=== PATIENT | male | born 1955 | race Caucasian/White ===

== ENCOUNTER → 2023-09-27 10:43 | Outpatient (REF) | payer MEDICARE, BC, SELFPAY | LOC: PAVMRI 10:43 | PROVIDERS: ATTENDING PHYSICIAN Physician Assistant; FAMILY PHYSICIAN Internal Medicine | DX: M54.16 Radiculopathy, lumbar region (principal); M54.12 Radiculopathy, cervical region | CPT/HCPCS: 72141; 72148 ==

== ENCOUNTER → 2023-09-30 07:34 | Outpatient (REF) | payer MEDICARE, BC, SELFPAY | LOC: EMG 07:34 | PROVIDERS: ATTENDING PHYSICIAN Physician Assistant; FAMILY PHYSICIAN Internal Medicine | DX: R20.2 Paresthesia of skin (principal); R20.0 Anesthesia of skin; G56.03 Carpal tunnel syndrome, bilateral upper limbs | CPT/HCPCS: 95886; 95911 ==

== ENCOUNTER → 2023-11-20 07:21 | Outpatient (REF) | payer MEDICARE, BC, SELFPAY | LOC: MRI 3T 07:21 | PROVIDERS: ATTENDING PHYSICIAN Internal Medicine | DX: D35.2 Benign neoplasm of pituitary gland (principal) | CPT/HCPCS: 70553; A9575 ==

== ENCOUNTER → 2023-12-03 07:22 | Outpatient (REF) | payer MEDICARE, BC, SELFPAY | LOC: EMG 07:22 | PROVIDERS: ATTENDING PHYSICIAN Physician Assistant; FAMILY PHYSICIAN Internal Medicine | DX: M54.16 Radiculopathy, lumbar region (principal); M79.605 Pain in left leg; R20.2 Paresthesia of skin; M79.672 Pain in left foot; M54.17 Radiculopathy, lumbosacral region | CPT/HCPCS: 95886; 95908 ==

== ENCOUNTER → 2023-12-26 11:43 | Outpatient (REF) | payer MEDICARE, BC, SELFPAY | LOC: DHCBC/DCA 11:43 | PROVIDERS: ATTENDING PHYSICIAN Internal Medicine Interventional Cardiology; FAMILY PHYSICIAN Orthopaedic Surgery | DX: I25.2 Old myocardial infarction (principal); I25.10 Atherosclerotic heart disease of native coronary artery without angina pectoris | CPT/HCPCS: 78452; 93017; A9500; J2785 ==

== ENCOUNTER → 2023-12-27 09:04 | Outpatient (REF) | payer MEDICARE, BC, SELFPAY | LOC: RCS 09:04 | PROVIDERS: ATTENDING PHYSICIAN Internal Medicine Interventional Cardiology; FAMILY PHYSICIAN Internal Medicine | DX: I25.2 Old myocardial infarction (principal) | CPT/HCPCS: 93306 ==

== ENCOUNTER → 2024-01-13 10:49 | Outpatient (REF) | payer MEDICARE, BC, SELFPAY ==
[2024-01-13 11:27] LABS: Osmolality Urine 568 mOsm/kg (300-900)
[2024-01-13 12:05] LABS: Blood Urea Nitrogen 14 mg/dl (9-20); Calcium 9.2 mg/dl (8.4-10.2); Carbon Dioxide 27 mmol/L (22-30); Chloride 104 mmol/L (98-107); Glucose 111 mg/dl (70-99); Potassium 4.4 mmol/L (3.5-5.1); Sodium 143 mmol/L (135-145); eGFR > 60.00
== END ==
LOC: REG 10:49
PROVIDERS: ATTENDING PHYSICIAN Internal Medicine Endocrinology, Diabetes & Metabolism; FAMILY PHYSICIAN Internal Medicine
DX: R93.0 Abnormal findings on diagnostic imaging of skull and head, not elsewhere classified (principal)
CPT/HCPCS: 36415; 80048; 83935

== ENCOUNTER 2024-04-19 19:52 | Inpatient (IN) | payer MEDICARE, BC, SELFPAY ==
[2024-04-19 12:44] VITALS: BP 105/59
--- NOTE | 2024-04-19 14:34 | ED.GENMED ---
History of Present Illness
<Hilario Lai PA-C - Last Filed: 04/22/24 08:16>
General
Chief Complaint: Musculo-Skeletal Complaint
Time Seen by Provider: 04/19/24 13:06
History of Present Illness
History of Present Illness:
68-year-old male presents to the emergency department for evaluation of nontraumatic right elbow pain and swelling and warmth over the past 2 days. Denies any falls. No fevers or chills.
Past History
<Hilario Lai PA-C - Last Filed: 04/22/24 08:16>
Past History
ED Past Medical History: CAD, GERD, HTN, MA and Other (Arthritis, spinal stenosis, cellulitis)
ED Past Surgical History: Cardiac and Orthopedic
Social History
Tobacco: Non-smoker
Alcohol: None
Drug: None
Personal:
Living: with family
Family History
Family History: Other
Review of Systems
<Hilario Lai PA-C - Last Filed: 04/22/24 08:16>
Review of Systems
Allergies reviewed?: Yes
All Other Systems: ROS reviewed and negative except as documented in HPI and ROS
Phy Exam
<Hilario Lai PA-C - Last Filed: 04/22/24 08:16>
Physical Exam
Physical Exam:
GEN: Well appearing, NAD, WDWN
HEENT: Oral mucosa moist, no scleral icterus
Cardiac: Regular rate
Lung: No respiratory distress, no tachypnea
MSK: Diffuse swelling to the right elbow, palpable warmth, mild pain with passive range of motion but primarily with extension beyond 90 degrees, no pain with pronation or supination, no obvious external erythema
Skin: Good color, no pallor or jaundice, no rashes
Neuro: AO x3, moves all extremities freely
Psych: Calm, cooperative
Course
<Hilario Lai PA-C - Last Filed: 04/22/24 08:16>
Orders/Labs/Results
Orders:
Orders
04/19/24 12:48
Elbow, 3 View, Right [CR Elbow - Right Min 3 Views] Urgent
Comment:
Reason For Exam: pain
04/19/24 14:15
CBC/With ESR Urgent
CRP [C-Reactive Protein] Urgent
Comprehensive Metabolic Panel Urgent
04/19/24 Dinner
Cholesterol Lowering
At Your Request: Full Participation
Does patient need a safe tray?: No
Cholesterol Lowering: Sodium, 2 Gram
04/19/24 15:27
Body Fluid Cell Count Urgent
What is the Body Fluid: joint
Date Specimen was Collected: 04/19/24
Time Specimen was Collected: 15:26
Comment: with DIFF
Body Fluid Crystals Urgent
What is the Body Fluid: joint
Date Specimen was Collected: 04/19/24
Time Specimen was Collected: 15:26
Comment: R elbow
Fluid Culture with Gram Stain Urgent
ANJU Source: Joint Fluid
Specimen Description:
Date Specimen was Collected: 04/19/24
Time Specimen was Collected: 15:26
Comment: R elbow
04/19/24 19:17
Admit/Transfer Patient As Directed
Co-Sign Provider:
Level of Care: Inpatient admission
Assign to:: Medical/Surgical
Physician / Group: Estrada Mcdaniel
Diagnosis: septic arthritis, pseudogout
Reason for Hospitalization: septic arthritis, pseudogout
Expected length of stay greater than two midnights?: Yes
ELOS- Estimated Length of Stay in days: 3
I certify the patient meets the requirements for IP care: Yes
PRN Pain Medication Management As Directed
May give lesser potent ordered pain med per pt: Yes
preference::
Protocol:: Medication orders for pain may be administered in a
manner that supports deferring to patient preference
when the pt is:
- Requesting an ordered lesser potent pain medication.
Least to most potent pain medications are defined
as: acetaminophen < NSAID < tramadol < opioids
(morphine, oxycodone, hydromorphone).
- Requesting a lesser dose of the same medication IF
ORDERED.
- Requesting a less intrusive route of administration
if both routes are prescribed by the provider (PO <
IV).
04/19/24 19:19
Code Status As Directed
Resuscitation Status: Full Code
04/19/24 19:35
Vancomycin [Vancocin] 1,500 mg 0.9% Sodium Chloride 500 ml [Nss] 500 ml IV NOW
04/19/24 20:28
Acetaminophen [Tylenol] 650 mg PO Q4HPRN PRN
Ramipril [Altace] 10 mg PO BID
04/19/24 20:28
Activity As Directed
Activity Level: Ambulate
Vital Signs As Directed
Frequency: Per unit guidelines
Weight As Directed
Frequency: Once
DX Deep Vein Thrombosis Video Routine
04/19/24 22:00
Aspirin Low Dose EC [Aspir Low (Enteric Coated)] 81 mg PO HS
Atorvastatin [Lipitor] 20 mg PO HS
CefTRIAXone [Rocephin] 2,000 mg IV Q24H
Medical Marijuana 1 dose INH HS
Pregabalin [Lyrica] 400 mg PO HS
coQ10 (ubiquinol) 100 mg PO HS
04/20/24 07:13
Basic Metabolic Panel IN AM
Complete Blood Count/No Diff IN AM
04/20/24 08:00
Hydrochlorothiazide [Oretic] 25 mg PO DAILY
Metoprolol Xl [Toprol Xl] 25 mg PO DAILY
Multivitamin [Theragran] 1 tablet PO DAILY
Pantoprazole [Protonix] 40 mg PO DAILY
Pregabalin [Lyrica] 200 mg PO DAILY
omega-3 acid ethyl esters [Lovaza] 2 gm PO DAILY
04/20/24 18:00
Enoxaparin Sodium [Lovenox] 40 mg SC QPM
04/21/24 05:49
Basic Metabolic Panel IN AM
Complete Blood Count/No Diff IN AM
04/22/24 06:20
Basic Metabolic Panel IN AM
Complete Blood Count/No Diff IN AM
Abnormal Lab Results
04/19/24
14:15
WBC 15.2 H 10^3/uL
(4.8-10.8)
Absolute Neuts (auto) 12.0 H 10^3/uL
(1.4-6.5)
Absolute Monos (auto) 1.6 H 10^3/uL
(0.1-0.6)
Neutrophils % 78.5 H %
(42.2-75.2)
Lymphocytes % 8.5 L %
(20.5-51.1)
Monocytes % 10.8 H %
(1.7-9.3)
ESR 27 H mm/hour
(0-20)
Carbon Dioxide 32 H mmol/L
(22-30)
Glucose 128 H mg/dl
(70-99)
Total Bilirubin 2.1 H mg/dl
(0.2-1.3)
C-Reactive Protein 80.70 H mg/L
(0.0-10.00)
04/19/24 14:15
04/19/24 14:15
Vital Signs
Initial and Last Documented VS:
Initial Vital Signs
Temp Pulse Resp BP Pulse Ox
98.6 F 82 18 105/59 98
04/19/24 12:44 04/19/24 12:44 04/19/24 12:44 04/19/24 12:44 04/19/24 12:44
Last Documented Vital Signs
Temp Pulse Resp BP Pulse Ox
98.5 F 58 19 114/66 98
04/21/24 23:21 04/21/24 23:21 04/21/24 23:21 04/21/24 23:21 04/21/24 23:21
<Jennifer Tejeda NP - Last Filed: 04/19/24 23:48>
Orders/Labs/Results
Orders:
Orders
04/19/24 12:48
Elbow, 3 View, Right [CR Elbow - Right Min 3 Views] Urgent
Comment:
Reason For Exam: pain
04/19/24 14:15
CBC/With ESR Urgent
CRP [C-Reactive Protein] Urgent
Comprehensive Metabolic Panel Urgent
04/19/24 Dinner
Cholesterol Lowering
At Your Request: Full Participation
Does patient need a safe tray?: No
Cholesterol Lowering: Sodium, 2 Gram
04/19/24 15:27
Body Fluid Cell Count Urgent
What is the Body Fluid: joint
Date Specimen was Collected: 04/19/24
Time Specimen was Collected: 15:26
Comment: with DIFF
Body Fluid Crystals Urgent
What is the Body Fluid: joint
Date Specimen was Collected: 04/19/24
Time Specimen was Collected: 15:26
Comment: R elbow
Fluid Culture with Gram Stain Urgent
ANJU Source: Joint Fluid
Specimen Description:
Date Specimen was Collected: 04/19/24
Time Specimen was Collected: 15:26
Comment: R elbow
04/19/24 19:17
Admit/Transfer Patient As Directed
Co-Sign Provider:
Level of Care: Inpatient admission
Assign to:: Medical/Surgical
Physician / Group: Estrada Mcdaniel
Diagnosis: septic arthritis, pseudogout
Reason for Hospitalization: septic arthritis, pseudogout
Expected length of stay greater than two midnights?: Yes
ELOS- Estimated Length of Stay in days: 3
I certify the patient meets the requirements for IP care: Yes
PRN Pain Medication Management As Directed
May give lesser potent ordered pain med per pt: Yes
preference::
Protocol:: Medication orders for pain may be administered in a
manner that supports deferring to patient preference
when the pt is:
- Requesting an ordered lesser potent pain medication.
Least to most potent pain medications are defined
as: acetaminophen < NSAID < tramadol < opioids
(morphine, oxycodone, hydromorphone).
- Requesting a lesser dose of the same medication IF
ORDERED.
- Requesting a less intrusive route of administration
if both routes are prescribed by the provider (PO <
IV).
04/19/24 19:19
Code Status As Directed
Resuscitation Status: Full Code
04/19/24 19:35
Vancomycin [Vancocin] 1,500 mg 0.9% Sodium Chloride 500 ml [Nss] 500 ml IV NOW
04/19/24 20:28
Acetaminophen [Tylenol] 650 mg PO Q4HPRN PRN
Ramipril [Altace] 10 mg PO BID
04/19/24 20:28
Activity As Directed
Activity Level: Ambulate
Vital Signs As Directed
Frequency: Per unit guidelines
Weight As Directed
Frequency: Once
DX Deep Vein Thrombosis Video Routine
04/19/24 22:00
Aspirin Low Dose EC [Aspir Low (Enteric Coated)] 81 mg PO HS
Atorvastatin [Lipitor] 20 mg PO HS
CefTRIAXone [Rocephin] 2,000 mg IV Q24H
Medical Marijuana 1 dose INH HS
Pregabalin [Lyrica] 400 mg PO HS
coQ10 (ubiquinol) 100 mg PO HS
04/20/24 07:13
Basic Metabolic Panel IN AM
Complete Blood Count/No Diff IN AM
04/20/24 08:00
Hydrochlorothiazide [Oretic] 25 mg PO DAILY
Metoprolol Xl [Toprol Xl] 25 mg PO DAILY
Multivitamin [Theragran] 1 tablet PO DAILY
Pantoprazole [Protonix] 40 mg PO DAILY
Pregabalin [Lyrica] 200 mg PO DAILY
omega-3 acid ethyl esters [Lovaza] 2 gm PO DAILY
04/20/24 18:00
Enoxaparin Sodium [Lovenox] 40 mg SC QPM
04/21/24 05:49
Basic Metabolic Panel IN AM
Complete Blood Count/No Diff IN AM
04/22/24 06:20
Basic Metabolic Panel IN AM
Complete Blood Count/No Diff IN AM
Abnormal Lab Results
04/19/24
14:15
WBC 15.2 H 10^3/uL
(4.8-10.8)
Absolute Neuts (auto) 12.0 H 10^3/uL
(1.4-6.5)
Absolute Monos (auto) 1.6 H 10^3/uL
(0.1-0.6)
Neutrophils % 78.5 H %
(42.2-75.2)
Lymphocytes % 8.5 L %
(20.5-51.1)
Monocytes % 10.8 H %
(1.7-9.3)
ESR 27 H mm/hour
(0-20)
Carbon Dioxide 32 H mmol/L
(22-30)
Glucose 128 H mg/dl
(70-99)
Total Bilirubin 2.1 H mg/dl
(0.2-1.3)
C-Reactive Protein 80.70 H mg/L
(0.0-10.00)
04/19/24 14:15
04/19/24 14:15
Vital Signs
Initial and Last Documented VS:
Initial Vital Signs
Temp Pulse Resp BP Pulse Ox
98.6 F 82 18 105/59 98
04/19/24 12:44 04/19/24 12:44 04/19/24 12:44 04/19/24 12:44 04/19/24 12:44
Last Documented Vital Signs
Temp Pulse Resp BP Pulse Ox
98.5 F 58 19 114/66 98
04/21/24 23:21 04/21/24 23:21 04/21/24 23:21 04/21/24 23:21 04/21/24 23:21
Procedures
<Hilario Lai PA-C - Last Filed: 04/22/24 08:16>
Incision/Drainage/Joint Aspiration
Right Elbow:
Anethesia: ethyl chloride
Preparation: cleaned with Betadine
Type of procedure: aspiration
Nature of site: other (joint effusion)
How much fluid was obtained?: number in mls (10)
Fluid description: cloudy
Treatment: bandaid applied
<Hilario Lai PA-C - Last Filed: 04/22/24 08:16>
MDM/Problems Addressed
MDM/Problems Addressed:
Given the nontraumatic effusion coupled with markedly elevated CRP and elevated serum WBCs a joint aspiration was conducted yielding approximately 10 cc of cloudy fluid. This is sent for fluid analysis, high suspicion for septic joint at this time.
Signed out to Jennifer Tejeda NP pending fluid culture results, orthopedics made aware of potential admission
<Jennifer Tejeda NP - Last Filed: 04/19/24 23:48>
*Critical Care Note
Total Time (30-74mins, 75-104mins- exclusive of procedures): Not Applicable
<Jennifer Tejeda NP - Last Filed: 04/19/24 23:48>
Update Note
Update Note:
Joint fluid WBC [address]30. Dr. Ramirez consulted earlier by previous provider. I updated him on inital WBC reading by lab of [id number]. WBC cout re-ran at his request. Will admit to hospitalist for concern over septic joint, however pseudogout is
possible explanation. Fluid culture results are pending. He remains afebrile. Dr. Berman will consult if needed following culture results.
ED Attending Note
<Hilario Lai PA-C - Last Filed: 04/22/24 08:16>
-
Portions of this chart may have been created with voice recognition software.� Occasional wrong word or��sound alike� substitutions may have occurred due to the inherent limitations of voice recognition software.
Discharge Plan
Departure
Patient Disposition: Admit
Date of Disposition: 04/19/24
Time of Disposition: 18:37
Presentation/result/management discussed w/ accepting MD/DO: Hospitalist
Condition: Fair
Covid-19: Not Applicable
Discharge Problem:
Swollen joint
Interventions
Interventions:
*Risk Screen - Suicide Last Done: 04/19/24 12:44
*General Assessment Last Done: 04/19/24 12:44
*Neglect/Abuse Screening Last Done: 04/19/24 12:44
ED- Fall Risk Assessment Last Done: 04/19/24 13:50
*ED COVID-19 Vaccine History Last Done: 04/19/24 20:40
*Nursing Disposition Last Done: 04/19/24 20:30
ED-Musculoskeletal Assessment Last Done: 04/19/24 13:50
Discharge Date and Time
Discharge Date/Time: 04/19/24 20:45
[2024-04-19 14:35] LABS: % Basophils 0.5 % (0-2); % Eosinophils 1.4 % (0-6); % Immature Granulocytes 0.3 % (0-0.5); % Lymphocytes 8.5 % (20.5-51.1); % Monocytes 10.8 % (1.7-9.3); % Neutrophils 78.5 % (42.2-75.2); Absolute Basophils 0.1 10^3/uL (0-0.2); Absolute Eosinophils 0.2 10^3/uL (0-0.7); Absolute Lymphocytes 1.3 10^3/uL (1.2-3.4); Absolute Monocytes 1.6 10^3/uL (0.1-0.6); Hemoglobin 15.4 g/dL (13.0-18.0); Mean Corpuscular Hgb 28.9 pg (27.0-31.0); Mean Corpuscular Volume 82.6 fL (80.0-94.0); Mean Platelet Volume 9.8 fL (7.4-10.4); Nucleated Red Blood Cells % 0 % (-); Platelet Count 250 10^3/uL (130-400); Red Blood Cell Count 5.33 10^6/uL (4.70-6.10); Red Cell Dist. Width 12.6 % (11.5-14.5); White Blood Cell Count 15.2 10^3/uL (4.8-10.8)
[2024-04-19 14:52] LABS: ALT (SGPT) 17 U/L (0-50); AST (SGOT) 23 U/L (17-59); Albumin 3.9 g/dl (3.5-5.0); Alkaline Phosphatase 106 U/L (38-126); Blood Urea Nitrogen 16 mg/dl (9-20); Calcium 9.1 mg/dl (8.4-10.2); Carbon Dioxide 32 mmol/L (22-30); Chloride 98 mmol/L (98-107); Glucose 128 mg/dl (70-99); Potassium 3.5 mmol/L (3.5-5.1); Sodium 138 mmol/L (135-145); Total Bilirubin 2.1 mg/dl (0.2-1.3); Total Protein 6.7 g/dl (6.3-8.2); eGFR > 60.00
[2024-04-19 15:03] LABS: Erythrocyte Sed Rate 27 mm/hour (0-20)
[2024-04-19 16:47] LABS: Body Fluid Mononuclear 6.2 %; Body Fluid Polymorphonuclear 93.8 %; Body Fluid Second Tech FB
[2024-04-19 17:56] VITALS: BP 118/70
[2024-04-19 18:09] LABS: Body Fluid WBC 59160 /CUMM
--- NOTE | 2024-04-19 18:42 | HPS.HSE ---
Family Physician
-
Family Physician: Geni Arndt
Chief Complaint
-
Right elbow pain
History of Present Illness
Patient is a 68-year-old male with past medical history significant for CAD, hyperlipidemia, hypertension, osteoarthritis and GERD who presented to [facility] ED for evaluation of right elbow pain and swelling. Patient reports right elbow pain,
swelling and warmth over past 2 days. Patient denies any trauma to elbow. Denies any fever, chills, cough, chest pain, shortness of breath, constipation, diarrhea, or urinary symptoms.
Medical History
Past Medical History
Past Medical History: Reports Other
Additional Past Medical History:
CAD
hyperlipidemia
hypertension
osteoarthritis
GERD
Past Surgical History: Reports Other
Additional Past Surgical History:
cardiac stent
left hip replacement
tight leg amputation and reattachment
Social History
Tobacco: Former Smoker
Alcohol: Occasional (1-2 glasses of wine per week)
Drug: Marijuana (medical marijuana at night for sleep)
Personal:
Living: With Family
Employment: Retired
Family History
Family History: Not pertinent
Allergies / Home Medications
Allergies reflects when Allergies were last updated in [facility].
Home Medications with original date entered in [facility]
Allergy/Medication List:
Allergies
Allergy/AdvReac Type Severity Reaction Status Date / Time
No Known Allergies Allergy Unverified 04/19/24 12:45
Home Medications
atorvastatin 20 mg tablet 20 mg PO HS High cholesterol 10/13/20
metoprolol succinate 25 mg tablet,extended release 24 hr 25 mg PO DAILY Blood pressure 10/13/20
omega-3 acid ethyl esters 1 gram capsule (Lovaza) 2 gm PO DAILY Supplement 10/13/20
omeprazole 40 mg capsule,delayed release 40 mg PO DAILY Gastrointestinal issue 10/13/20
ramipril 10 mg capsule 10 mg PO BID Blood pressure 10/13/20
Medical Marijuana 1 dose inhalation HS 01/29/23
aspirin 81 mg tablet,delayed release 81 mg PO HS 01/29/23
coQ10 (ubiquinol) 100 mg capsule 100 mg PO HS 02/18/23
hydrochlorothiazide 25 mg tablet 25 mg PO DAILY 04/19/24
pregabalin 200 mg capsule 200 mg PO DAILY 04/19/24
pregabalin 200 mg capsule 400 mg PO HS 04/19/24
therapeutic multivitamin 1 tab PO DAILY 04/19/24
Review of Systems
-
History Source: Patient
Constitutional: Reports No Symptoms
EENT: Reports No Symptoms
Respiratory: Reports No Symptoms
Cardiac: Reports No Symptoms
Abdomen/GI: Reports No Symptoms
: Reports No Symptoms
Musculoskeletal: Reports Joint Pain (right elbow) and Joint Swelling (right elbow)
Skin: Reports No Symptoms
Neurological: Reports No Symptoms
Endocrine: Reports No Symptoms
Hematologic/Lymphatic: Reports No Symptoms
Psych: Reports No Symptoms
Physical Exam
Vital Signs
Vital Signs
Temp Pulse Resp BP Pulse Ox
98.6 F 80 20 118/70 99
04/19/24 12:44 04/19/24 17:56 04/19/24 17:56 04/19/24 17:56 04/19/24 17:56
Physical Exam
General: Well Developed, Well Nourished, No Apparent Distress, Comfortable and Conversant
HEENT: NormoCephalic, Moist mucous membranes, Atraumatic, PERRLA, [place] Conjunctivae, Nose Appears Normal and Ears Appear Normal
Respiratory: Clear and Non Labored Respirations
Cardiac: S1/S2 and Regular Rhythm; No Murmur, Rub or Gallop
Breast: Deferred by me
GI: Soft, Non Tender, Non Distended and Normal Bowel Sounds; No Organomegaly
Rectal: Deferred by Provider
Genito-urinary: Deferred by me
Musculoskeletal: No Clubbing, No Cyanosis and Other (right elbow edema and tenderness)
Skin: Warm and IV/Catheter Site; No Rash
Neuro: Awake, Alert, AO x 3 and Nonfocal/grossly intact
Hematologic/Lymphatic: No Lymphadenopathy
Psych: Calm and Intact Judgment/Insight
Laboratory Results
-
04/19/24 14:15
04/19/24 14:15
Laboratory Results
Total Bilirubin 2.1 mg/dl (0.2-1.3) H 04/19/24 14:15
AST 23 U/L (17-59) 04/19/24 14:15
ALT 17 U/L (0-50) 04/19/24 14:15
Alkaline Phosphatase 106 U/L (38-126) 04/19/24 14:15
Data Reviewed
-
Diagnostic Radiology: Report Reviewed by me (right elbow: No acute fractures identified.)
Lab Data: Labs Reviewed by me (WBC 15.2, Neut 78.5, CRP 80.70, Joint fluid WBC 55712)
Impression/Plan
-
IMPRESSION/PLAN:
#septic arthritis vs. pseudogout
Labs: WBC 15.2, CRP 80.70
Joint Aspiration (approximately 10 cc of cloudy fluid): WBC 66854, calcium pyrophosphate crystals seen (culture pending)
Elbow X-Ray: No acute fractures identified.
Suggestion of a joint effusion. Occult fracture cannot be excluded.
Mild ulnohumeral osteoarthritis.
- Admit to Med/Surg
- Consult ID
- Consult Ortho if needed (ED spoke with Ortho: Dr. Berman will consult if needed following culture results)
- IV Vanco and Ceftriaxone
#osteoarthritis
- continue pregabalin
#CAD
- continue aspirin, atorvastatin, metoprolol
#hyperlipidemia
- continue atorvastatin
#hypertension
- continue ramipril and metoprolol
#GERD
- continue omeprazole
Code status: Full Code
DVT Prophylaxis: Lovenox Sq
[2024-04-19 19:20] VITALS: BMI 25.9
--- NOTE | 2024-04-19 19:41 | W.PN.UPDATE ---
Update Note
Progress Note Update
This is an addendum to the H&P written by Ameena Yang on 04/19/2024.� Patient seen and examined independently with [employer].
68-year-old male past medical history of osteoarthritis, CAD status post PCI in 2000, hypertension, hyperlipidemia, GERD, hiatal hernia, migraines, cervical degenerative disc disease, presenting with nontraumatic right elbow pain swelling and warmth
over the past 2 days.� No fevers or chills.
He also has some swelling and pain of the right index finger DIP joint.
Elbow x-ray shows no acute fracture.� There is suggestion of joint effusion.
Labs show leukocytosis.� Elevated inflammatory markers.� Joint aspiration was performed yielding 10 cc of cloudy fluid.� Fluid culture shows white cells of 59,000 consistent with septic arthritis. There are calcium pyrophosphate crystals.�
Presentation concerning for potential septic arthritis secondary to pseudogout.� Culture pending.� Will start vancomycin/ceftriaxone.� Ortho (Dr. Finch) notified and can be consulted tomorrow if necessary.� ID consulted.
[2024-04-19] MEDS: VANCOCIN 530 MG IV (20:02)
[2024-04-19 20:31] VITALS: BMI 26.2
[2024-04-19 20:40] VITALS: BP 116/73
--- NOTE | 2024-04-19 21:00 | PTCARENOTE ---
Received patient from ED via stretcher. Patient ambulated from stretcher to bed independently. AAOx3, reports 7/10 pain to R elbow. Oriented patient to room and placed call nelson within reach.
--- NOTE | 2024-04-19 21:46 | PHA.VAN.IN ---
Assessment
- Assessment
Renal Function: Appears similar to baseline
Concomitant Antimicrobials: Ceftriaxone
AUC Dosing Plan
- Dosing Variables
Dosing Weight (kg): 82.7
Dosing CrCl (ml/min): 71
Vd coefficient (L/kg): 0.7
- Empiric Dosing
Initial / Loading Dose: Vancomycin 1500mg given 04/19 at 1930
Maintenance Regimen: Vancomycin 1000mg IV Q12h- start 04/20 at 0600
Estimated AUC (mcg*h/mL): 546
Estimated Peak (mcg*h/mL): 32.5
Estimated Trough (mcg/ml): 15.2
Estimated Half Life (H): 10.9
- Monitoring
No levels ordered at this time: Will order levels prior to steady state.
Pharmacokinetics Vancomycin I
- -
Patient Age: 68
Patient Sex: Male
Vancomycin Day #: 1
Indication: Bone And Joint
Requesting Provider: ANTHONY Orona
Pertinent Antimicrobial Allergies:
NKA
Height / Weight:
Height 5 ft 10 in
Actual Weight 82.7 kg
- Vital Signs / Lab Results
Temp Pulse Resp BP Pulse Ox
99.7 F 85 18 116/73 97
04/19/24 20:40 04/19/24 20:40 04/19/24 20:40 04/19/24 20:40 04/19/24 20:40
Lab Results - Hematology
04/19/24
14:15
WBC 15.2 H
Lab Results - Chemistry
04/19/24
14:15
BUN 16
Creatinine 1.0
Albumin 3.9
[2024-04-19] MEDS: ASPIR LOW (ENTERIC COATED) 81 MG PO (21:54)
[2024-04-19] MEDS: LYRICA 400 MG PO (21:54)
[2024-04-19] MEDS: LIPITOR 20 MG PO (21:54)
[2024-04-19] MEDS: ALTACE 10 MG PO (21:55)
[2024-04-19] MEDS: ROCEPHIN 2000 MG IV (21:55)
[2024-04-19] MEDS: MELATONIN 5 MG PO (21:55)
[2024-04-19] MEDS: STERILE WATER FOR INJECTION 20 ML IV (21:55)
[2024-04-19] MEDS: TYLENOL 650 MG PO (22:06)
[2024-04-19 22:43] VITALS: BP 100/56
[2024-04-20] MEDS: VANCOCIN 200 IV ×2 (05:33→17:44)
[2024-04-20 07:20] VITALS: BP 136/67
[2024-04-20 07:45] LABS: Hematocrit 41.2 % (39.0-52.0); Hemoglobin 14.3 g/dL (13.0-18.0); Mean Corp Hgb Conc. 34.7 g/dL (33.0-37.0); Mean Corpuscular Hgb 28.3 pg (27.0-31.0); Mean Corpuscular Volume 81.4 fL (80.0-94.0); Mean Platelet Volume 9.6 fL (7.4-10.4); Platelet Count 227 10^3/uL (130-400); Red Blood Cell Count 5.06 10^6/uL (4.70-6.10); Red Cell Dist. Width 12.3 % (11.5-14.5); White Blood Cell Count 12.8 10^3/uL (4.8-10.8)
[2024-04-20] MEDS: ORETIC 25 MG PO (07:54)
[2024-04-20] MEDS: THERAGRAN 1 TABLET PO (07:54)
[2024-04-20] MEDS: TOPROL XL 25 MG PO (07:54)
[2024-04-20] MEDS: LYRICA 200 MG PO (07:54)
[2024-04-20] MEDS: PROTONIX 40 MG PO (07:54)
[2024-04-20 08:35] LABS: Blood Urea Nitrogen 13 mg/dl (9-20); Calcium 8.6 mg/dl (8.4-10.2); Carbon Dioxide 27 mmol/L (22-30); Chloride 99 mmol/L (98-107); Estimated Creatinine Clearance 89 ml/min; Glucose 132 mg/dl (70-99); Sodium 136 mmol/L (135-145); eGFR > 60.00
--- NOTE | 2024-04-20 08:41 | PHA.VAN.FU ---
Vancomycin Assessment / Plan
- Assessment
Renal Function: Stable
WBC's are: Trending Down
In the past 24 hrs, patient has been: Afebrile
Concomitant Antimicrobials: ceftriaxone
- Dosing Plan
Continue: Vanc 1000mg Q12H
- Monitoring Plan
No level(s) ordered at this time: consider levels in next few days
- Follow Up
Pharmacy will continue to follow.
Vancomycin Follow UP
- -
Patient Age: 68
Patient Sex: Male
Vancomycin Day #: 2
Indication: Bone And Joint
Requesting Provider: ANTHONY Orona
Pertinent Antimicrobial Allergies:
NKDA
Height / Weight:
Height 5 ft 10 in
Actual Weight 82.7 kg
- Vital Signs / Lab Results
Temp Pulse Resp BP Pulse Ox
99.0 F 76 18 126/61 96
04/20/24 07:20 04/20/24 07:54 04/20/24 07:20 04/20/24 07:54 04/20/24 07:22
Lab Results - Hematology
04/19/24 04/20/24
14:15 07:13
WBC 15.2 H 12.8 H
Lab Results - Chemistry
04/19/24 04/20/24
14:15 07:13
BUN 16 13
Creatinine 1.0 0.8
Estimated Creat Clear 89
Albumin 3.9
--- NOTE | 2024-04-20 09:29 | PTCARENOTE ---
k of 3 today, notified dr. noguera, ordered potassium. will give as ordered, see MAR. Pt resting in bed comfortable. call nelson within reach.
[2024-04-20] MEDS: ALTACE 10 MG PO ×2 (10:31→19:28)
[2024-04-20] MEDS: TYLENOL 650 MG PO (10:33)
[2024-04-20] MEDS: KCL 40 MEQ PO ×2 (10:33→13:38)
--- NOTE | 2024-04-20 12:54 | W.PN.HOSP.TC ---
Today's Communication/Plan
-
Assessment / Plan
Assessment / Plan
Pseudogout complicated by septic arthritis affecting the right elbow and likely right wrist
-Follow-up on culture follow-up culture from arthrocentesis
-Continue Vanco Rocephin
-ID consult
Hypokalemia
Replete as needed
Hypertension continue antihypertensives
Hyperlipidemia continue Lipitor
GERD continue PPI
Anticipated Discharge: 24 - 48 hours
Subjective/Interval History
-
Date of Service: April 20, 2024
Seen and examined. Right elbow pain improved after arthrocentesis. No new complaints.
Objective Data
-
Labs:
Laboratory Results
04/20/24
07:13
WBC 12.8 H
Hgb 14.3
Hct 41.2
Plt Count 227
Sodium 136
Potassium 3.0 L
Chloride 99
Carbon Dioxide 27
BUN 13
Creatinine 0.8
Glucose 132 H
Calcium 8.6
Vital Signs:
Vital Signs
Temp Pulse Resp BP Pulse Ox
99.0 F 76 18 126/61 96
04/20/24 07:20 04/20/24 07:54 04/20/24 07:20 04/20/24 07:54 04/20/24 07:22
I&O
04/19/24 04/20/24 04/21/24
06:59 06:59 06:59
Intake Total 480 / 480 480 / 480
Balance 480 / 480 480 / 480
Physical Exam
-
General: Well Developed and Well Nourished
HEENT: Normocephalic and Atraumatic
Respiratory: Clear to Auscultation
Cardiac: Regular Rhythm and S1/S2
GI: Soft, Nontender, Nondistended and Normal Bowel Sounds
Musculoskeletal: Other (Right elbow warm compared to left elbow, right wrist and right elbow both diffused additionally pain with passive and active range of motion)
Skin: Warm and Dry
Neuro: Awake, Alert, Oriented and AO x 3
Psych: Calm
--- NOTE | 2024-04-20 13:43 | CON.ID ---
Consultation
-
Date/Time Consultation Requested: 04/19/2024 2202
Date/Time Consultation Performed: 04/20/2024 1313
Requesting Provider: Ameena Yang
Performing Provider: Dr. Leger
Reason for Consultation: Right elbow septic arthritis
Chief Complaint / Past History
History of Present Illness
John Garcia is a 68-year-old male being evaluated at the request of Ameena Yang regarding right elbow septic arthritis. History is obtained from chart review, along with patient interview.
The patient has a significant past medical history of HTN, CAD and osteoarthritis. He reports that he was in his usual state of health until several days ago when he began to have right elbow discomfort. Over the next several days there was
increased swelling and pain. The patient denies any recent trauma. He denies any fevers or chills. He does note that because of ongoing bilateral knee discomfort he has altered his walking up the stairs, using his right arm more, but does not
rest his elbows on any type of structure (i.e. table, desk, etc.).
In the ER, the right elbow was tapped. Cultures are currently pending. Infectious Diseases asked to comment upon further antimicrobial therapy.
Past History
Additional Past Medical History:
CAD; Hx CA
GERD
HTN
Osteoarthritis
Spinal stenosis
Additional Past Surgical History:
PCI with stenting
Left hip replacement
Right leg amputation and reattachment (at age 5)
Allergy History:
No Known Allergies Allergy (Unverified 04/19/24 12:45)
Medications Reviewed: Yes
Current Antibiotics:
Vancomycin
Ceftriaxone
Social History
Tobacco: Former Smoker
Alcohol: Occasional
Drug: Marijuana
Personal:
Living: With Family
Employment: Retired
Family History
Family History: Not Pertinent
Review of Systems
Vital Signs
Temp Pulse Resp BP Pulse Ox
99.0 F 76 18 126/61 96
04/20/24 07:20 04/20/24 07:54 04/20/24 07:20 04/20/24 07:54 04/20/24 07:22
Physical Exam
Physical Exam
Constitutional: No Acute Distress, Comfortable and Non-toxic
Eyes: Pupils Equal, Pupils Round, No Conjunctival Hemorrhage and Sclera Anicteric
Oral: No Thrush and No Ulcers
Cardiovascular: Regular Rate and S1/S2; Negative S3/S4
Pulmonary: Clear; Negative Wheezes, Rales or Rhonchi
Gastrointestinal: Soft, Non Tender, Non Distended and Normal Bowel Sounds
Extremities: Edema (trace; RUE); Negative Erythema
Musculoskeletal: Joint Swelling (right elbow; minimal)
Skin: Warm and Dry; Negative Rash or Jaundice
Neurological: Awake, Alert and Oriented
Psychological: Calm
Lab / Diagnostic Study Results
04/20/24 07:13
04/20/24 07:13
Abs Immat Gran (auto) 0.0 10^3/uL (0-0.05) 04/19/24 14:15
Absolute Neuts (auto) 12.0 10^3/uL (1.4-6.5) H 04/19/24 14:15
Absolute Lymphs (auto) 1.3 10^3/uL (1.2-3.4) 04/19/24 14:15
Absolute Monos (auto) 1.6 10^3/uL (0.1-0.6) H 04/19/24 14:15
Absolute Basos (auto) 0.1 10^3/uL (0-0.2) 04/19/24 14:15
Immature Gran % 0.3 % (0-0.5) 04/19/24 14:15
Neutrophils % 78.5 % (42.2-75.2) H 04/19/24 14:15
Lymphocytes % 8.5 % (20.5-51.1) L 04/19/24 14:15
Monocytes % 10.8 % (1.7-9.3) H 04/19/24 14:15
Eosinophils % 1.4 % (0-6) 04/19/24 14:15
Basophils % 0.5 % (0-2) 04/19/24 14:15
ESR 27 mm/hour (0-20) H 04/19/24 14:15
C-Reactive Protein 80.70 mg/L (0.0-10.00) H 04/19/24 14:15
Microbiology Results
Micro:
04/19/24 15:27 Body Fluid Culture - Preliminary
Joint Fluid No Growth After 18-24 Hours
Gram Stain - Pending
Laboratory Tests
04/19/24
15:27
Fluid WBC 70094
Fluid Mononuclear Cell 6.2
Fl Polymorphonucl Cell 93.8
Fluid Crystals calcium pyrophosphate
Assessment / Plan
Right elbow pain
Pseudogout right elbow (recovery of calcium pyrophosphate's from joint aspiration)
Rule out septic arthritis
Elevated CRP with minimally elevated ESR
CAD; Hx CA
GERD
HTN
Osteoarthritis
Spinal stenosis
Recommendations:
Continue current antibiotic therapy while cultures are pending.
Monitor white count and temperature curve
[2024-04-20 15:33] VITALS: BP 103/62
--- NOTE | 2024-04-20 16:31 | CM ---
Alert awake oriented patient lives with his Antonia who lives in a 2 story home with 1 step to enter and 11 steps to bed and bathroom. He is independent in driving and in all activities of daily living.He was offered VN he declined need.
No VN hx / No SNF history
Pharmacy [facility]
PCP DR Arndt
PLAN Home Declined VN
[2024-04-20] MEDS: LOVENOX 40 MG SC (17:44)
[2024-04-20 19:05] LABS: Hepatitis C Antibody Negative (Negative)
[2024-04-20] MEDS: LIPITOR 20 MG PO (19:28)
[2024-04-20] MEDS: ASPIR LOW (ENTERIC COATED) 81 MG PO (19:28)
[2024-04-20] MEDS: LYRICA 400 MG PO (21:51)
[2024-04-20] MEDS: ROCEPHIN 2000 MG IV (22:35)
[2024-04-20] MEDS: STERILE WATER FOR INJECTION 20 ML IV (22:36)
[2024-04-20 23:54] VITALS: BP 102/57
[2024-04-21] MEDS: ROXICODONE 5 MG PO (05:36)
[2024-04-21] MEDS: VANCOCIN 200 IV (05:55)
[2024-04-21 07:55] LABS: Hematocrit 40.2 % (39.0-52.0); Hemoglobin 13.9 g/dL (13.0-18.0); Mean Corp Hgb Conc. 34.6 g/dL (33.0-37.0); Mean Corpuscular Hgb 28.4 pg (27.0-31.0); Mean Platelet Volume 10.1 fL (7.4-10.4); Platelet Count 263 10^3/uL (130-400); Red Cell Dist. Width 12.4 % (11.5-14.5); White Blood Cell Count 9.8 10^3/uL (4.8-10.8)
[2024-04-21 08:13] VITALS: BP 124/68
[2024-04-21] MEDS: LYRICA 200 MG PO (08:22)
[2024-04-21] MEDS: ORETIC 25 MG PO (08:22)
[2024-04-21] MEDS: ALTACE 10 MG PO ×2 (08:22→20:27)
[2024-04-21] MEDS: TOPROL XL 25 MG PO (08:22)
[2024-04-21] MEDS: PROTONIX 40 MG PO (08:22)
[2024-04-21] MEDS: THERAGRAN 1 TABLET PO (08:22)
[2024-04-21 08:25] LABS: Blood Urea Nitrogen 15 mg/dl (9-20); Calcium 9.1 mg/dl (8.4-10.2); Carbon Dioxide 27 mmol/L (22-30); Chloride 99 mmol/L (98-107); Estimated Creatinine Clearance 71 ml/min; Glucose 103 mg/dl (70-99); Potassium 3.7 mmol/L (3.5-5.1); Sodium 138 mmol/L (135-145); eGFR > 60.00
--- NOTE | 2024-04-21 13:44 | W.PN.HOSP.TC ---
Today's Communication/Plan
-
Awaiting ID recommendations
Assessment / Plan
Assessment / Plan
NAD
Scleral Anicteric
MMM
No JVD
CTABL
RRR, S1/S2
Soft, NT, ND, BS+
Warm, Dry
-Right elbow swelling is improved and range of motion improved. Right wrist swelling unchanged, has been pain with active and passive ROM
AAOx3
Calm
Pseudogout complicated by septic arthritis affecting the right elbow and likely right wrist
-Follow-up on culture follow-up culture from arthrocentesis
-Continue Vanco Rocephin
-ID consult
-Started Naprosyn
Hypokalemia
Replete as needed
Hypertension continue antihypertensives
Hyperlipidemia continue Lipitor
GERD continue PPI
Anticipated Discharge: 24 - 48 hours
Subjective/Interval History
-
Date of Service: April 21, 2024
Seen and examined. Culture data remains negative. Right elbow passive and active range of motion improving however continues to have wrist pain right sided with noted swelling.
Objective Data
-
Labs:
Laboratory Results
04/21/24
05:49
WBC 9.8
Hgb 13.9
Hct 40.2
Plt Count 263
Sodium 138
Potassium 3.7
Chloride 99
Carbon Dioxide 27
BUN 15
Creatinine 1.0
Glucose 103 H
Calcium 9.1
Vital Signs:
Vital Signs
Temp Pulse Resp BP Pulse Ox
98 F 61 18 124/68 100
04/21/24 08:13 04/21/24 08:13 04/21/24 08:13 04/21/24 08:13 04/21/24 08:13
I&O
04/20/24 04/21/24 04/22/24
06:59 06:59 06:59
Intake Total 480 / 480 1400 / 1400
Balance 480 / 480 1400 / 1400
--- NOTE | 2024-04-21 13:58 | W.PN.ID1 ---
Date of Service
Date of Service: April 21, 2024
Today's Communication
Discontinue antibiotics.
Assessment / Plan
Right elbow pain
Pseudogout right elbow (recovery of calcium pyrophosphate's from joint aspiration)
Rule out septic arthritis
- cultures negative
Elevated CRP with minimally elevated ESR
CAD; Hx MS
GERD
HTN
Osteoarthritis
Spinal stenosis
Recommendations:
Arthrocentesis cultures negative.
No evidence of septic joint at present.
Discontinue further antibiotics.
����������������������������������������������������������
Chief Complaint
-: Other (Right elbow pain.)
Subjective / Review of Systems
Review of Systems: No Fever and No Chills
Vital Signs / Physical Exam
Vital Signs
Vital Signs
Temp Pulse Resp BP Pulse Ox
98 F 61 18 124/68 100
04/21/24 08:13 04/21/24 08:13 04/21/24 08:13 04/21/24 08:13 04/21/24 08:13
Physical Exam
Constitutional: No Acute Distress, Comfortable and Non-toxic
Eyes: Sclera Anicteric
Cardiovascular: S1/S2; Negative S3/S4
Pulmonary: Non Labored
Gastrointestinal: Soft and Non Tender
Musculoskeletal: Other (Mild swelling right elbow. Right wrist also mildly swollen.)
Neurological: Awake, Alert and Oriented
Psychological: Calm
Objective Data
Lab Data
Lab Results
04/21/24 05:49
04/21/24 05:49
ESR 27 mm/hour (0-20) H 04/19/24 14:15
Estimated Creat Clear 71 ml/min 04/21/24 05:49
Total Bilirubin 2.1 mg/dl (0.2-1.3) H 04/19/24 14:15
AST 23 U/L (17-59) 04/19/24 14:15
ALT 17 U/L (0-50) 04/19/24 14:15
Alkaline Phosphatase 106 U/L (38-126) 04/19/24 14:15
C-Reactive Protein 80.70 mg/L (0.0-10.00) H 04/19/24 14:15
Most recent labs reviewed.
Micro Results:
04/19/24 15:27 Body Fluid Culture - Preliminary
Joint Fluid No Growth After 48 Hours
Gram Stain - Preliminary
Laboratory Tests
04/19/24
15:27
Fluid WBC 90053
Fluid Mononuclear Cell 6.2
Fl Polymorphonucl Cell 93.8
Fluid Crystals calcium pyrophosphate
Care Review
Plan reviewed with: Physician (Hospitalist)
[2024-04-21 15:30] VITALS: BP 140/80
[2024-04-21] MEDS: LOVENOX 40 MG SC (17:32)
[2024-04-21] MEDS: ASPIR LOW (ENTERIC COATED) 81 MG PO (20:25)
[2024-04-21] MEDS: LYRICA 400 MG PO (20:25)
[2024-04-21] MEDS: NAPROSYN 500 MG PO (20:25)
[2024-04-21] MEDS: LIPITOR 20 MG PO (20:25)
[2024-04-21 23:21] VITALS: BP 114/66
[2024-04-22 07:11] LABS: Hematocrit 39.9 % (39.0-52.0); Mean Corp Hgb Conc. 35.1 g/dL (33.0-37.0); Mean Corpuscular Hgb 28.5 pg (27.0-31.0); Mean Corpuscular Volume 81.3 fL (80.0-94.0); Mean Platelet Volume 9.6 fL (7.4-10.4); Platelet Count 249 10^3/uL (130-400); Red Blood Cell Count 4.91 10^6/uL (4.70-6.10); Red Cell Dist. Width 12.2 % (11.5-14.5); White Blood Cell Count 9.2 10^3/uL (4.8-10.8)
[2024-04-22 07:37] LABS: Blood Urea Nitrogen 20 mg/dl (9-20); Calcium 8.8 mg/dl (8.4-10.2); Carbon Dioxide 29 mmol/L (22-30); Chloride 100 mmol/L (98-107); Estimated Creatinine Clearance 71 ml/min; Glucose 94 mg/dl (70-99); Potassium 3.7 mmol/L (3.5-5.1); Sodium 138 mmol/L (135-145); eGFR > 60.00
[2024-04-22 07:40] VITALS: BP 123/64
[2024-04-22] MEDS: LYRICA 200 MG PO (08:58)
[2024-04-22] MEDS: PROTONIX 40 MG PO (08:58)
[2024-04-22] MEDS: TOPROL XL 25 MG PO (08:58)
[2024-04-22] MEDS: ORETIC 25 MG PO (08:58)
[2024-04-22] MEDS: THERAGRAN 1 TABLET PO (08:58)
[2024-04-22] MEDS: NAPROSYN 500 MG PO (08:58)
[2024-04-22] MEDS: ALTACE 10 MG PO (08:58)
--- NOTE | 2024-04-22 13:57 | W.PN.HOSP.TC ---
Today's Communication/Plan
-
DC home
More than 30 minutes spent in discharge including
Final examination of the patient
Summarizing hospital stay
Instructions for continuing care to all relevant caregivers
Preparation of discharge records, prescriptions, and referral forms
Total time spent (in minutes): 33mins
Assessment / Plan
Assessment / Plan
NAD
Scleral Anicteric
MMM
No JVD
CTABL
RRR, S1/S2
Soft, NT, ND, BS+
Warm, Dry
-Right elbow/wrist pain swelling resolved
AAOx3
Calm
Pseudogout
-Follow-up on culture follow-up culture from arthrocentesis
Discontinue antibiotics as culture data of synovial fluid negative
-Started Naprosyn, with improvement of wrist pain and elbow pain
-- Discussed potential adverse events with Naprosyn such as GI bleed and kidney dysfunction. Take with food. Continue omeprazole for GI prophylax
Hypokalemia
Replete as needed
Hypertension continue antihypertensives
Hyperlipidemia continue Lipitor
GERD continue PPI
Discharge home
Anticipated Discharge: Today
Subjective/Interval History
-
Date of Service: April 22, 2024
Seen and examined. No new complaints. No acute overnight events.
Objective Data
-
Labs:
Laboratory Results
04/22/24
06:20
WBC 9.2
Hgb 14.0
Hct 39.9
Plt Count 249
Sodium 138
Potassium 3.7
Chloride 100
Carbon Dioxide 29
BUN 20
Creatinine 1.0
Glucose 94
Calcium 8.8
Vital Signs:
Vital Signs
Temp Pulse Resp BP Pulse Ox
97.7 F 56 18 123/64 97
04/22/24 07:40 04/22/24 07:40 04/22/24 07:40 04/22/24 07:40 04/22/24 08:30
I&O
04/21/24 04/22/24 04/23/24
06:59 06:59 06:59
Intake Total 1400 / 1400 1340 / 1340
Balance 1400 / 1400 1340 / 1340
--- NOTE | 2024-04-22 13:58 | W.DCSUMMARY ---
Discharge Summary
Discharge Data
Date of Admission: 04/19/24
Date of Discharge: 04/22/24
-
Pending Results: No
Hospital Course
68-year-old male with past medical history significant for CAD, hyperlipidemia, hypertension, osteoarthritis and GERD
Presented with right elbow pain and swelling along with right wrist pain and swelling. Evaluated in the ER, arthrocentesis completed, high white blood cell count of 59,000, synovial fluid culture negative however did show calcium pyrophosphate
crystals consistent with pseudogout. Evaluated by ID as started on antibiotics initially and was discontinued. Discharged home with Naprosyn as there is continued right wrist pain that improved after receiving 1-2 doses of Naprosyn. Naprosyn
should be taken with food at all times. Continue taking omeprazole for GI prophylaxis daily while on Naprosyn. Blood in stools or dark tarry stools please return to the ER
Right elbow xray
IMPRESSION:
No acute fractures identified.
Suggestion of a joint effusion. Occult fracture cannot be excluded.
Mild ulnohumeral osteoarthritis.
Discharge Plan
-
Patient Disposition: Home (Routine Discharge)
Discharge Diagnosis/Procedures: Psuedogout
Condition: Good
Diet: As tolerated
Activity: As tolerated
Activity Restrictions/Additional Instructions:
Presented with right elbow pain and swelling along with right wrist pain and swelling. Evaluated in the ER, arthrocentesis completed, high white blood cell count of 59,000, synovial fluid culture negative however did show calcium pyrophosphate
crystals consistent with pseudogout. Evaluated by ID as started on antibiotics initially and was discontinued. Discharged home with Naprosyn as there is continued right wrist pain that improved after receiving 1-2 doses of Naprosyn. Naprosyn
should be taken with food at all times. Continue taking omeprazole for GI prophylaxis daily while on Naprosyn. Blood in stools or dark tarry stools please return to the ER
Right elbow xray
IMPRESSION:
No acute fractures identified.
Suggestion of a joint effusion. Occult fracture cannot be excluded.
Mild ulnohumeral osteoarthritis.
Instructions: Calcium Pyrophosphate Deposition DiseaseDischarge Instructions (DC)
Referrals:
Geni Arndt MD [Family Provider] -
Prescriptions:
New
naproxen 500 mg Tablet
500 mg PO BID Qty: 10 0RF
Rx Instructions:
take with food
Continued
atorvastatin 20 MG tablet
20 mg PO HS
omeprazole 40 MG capsule,delayed release(DR/EC)
40 mg PO DAILY
metoprolol succinate 25 MG tablet extended release 24 hr
25 mg PO DAILY
ramipril 10 MG capsule
10 mg PO BID
omega-3 acid ethyl esters [Lovaza] 1 GM capsule
2 gm PO DAILY
aspirin 81 mg Tablet,Delayed Release (Dr/Ec)
81 mg PO HS
Medical Marijuana
1 dose inhalation HS
coQ10 (ubiquinol) 100 mg Capsule
100 mg PO HS
therapeutic multivitamin Tablet
1 tab PO DAILY
hydrochlorothiazide 25 mg Tablet
25 mg PO DAILY
pregabalin 200 mg Capsule
200 mg PO DAILY
pregabalin 200 mg Capsule
400 mg PO HS
Discharge Orders:
Discharge Patient (As Directed); Ordered 04/22/24
Ordered By: Tuan Watts
Discharge Date and Time
Print Language: ICELANDIC
[2024-04-22 14:17] VITALS: BP 143/85
--- NOTE | 2024-04-22 14:57 | CM ---
MD entered order for discharge.
Spoke with Antonia and pt in room.
IMM given reviewed signed on chart.
Offered VN pt declined.
PLAN Home no needs
== END 2024-04-22 14:20 | disposition home or self-care (01) | DRG 554 ==
LOC: 4 EAST ACU 19:52
PROVIDERS: Nurse Practitioner Family; Physician Assistant; ADMITTING PHYSICIAN Hospitalist; ATTENDING PHYSICIAN Hospitalist; EMERGENCY PHYSICIAN Emergency Medicine; FAMILY PHYSICIAN Internal Medicine; OTHER PHYSICIAN Internal Medicine Infectious Disease
PROC: 0R9L3ZX Drainage of Right Elbow Joint, Percutaneous Approach, Diagnostic (ICD-10-PCS; 2024-04-20)
DX: M11.221 Other chondrocalcinosis, right elbow (principal); I25.10 Atherosclerotic heart disease of native coronary artery without angina pectoris; E78.5 Hyperlipidemia, unspecified; I10 Essential (primary) hypertension; M19.90 Unspecified osteoarthritis, unspecified site; K21.9 Gastro-esophageal reflux disease without esophagitis; Z95.5 Presence of coronary angioplasty implant and graft; Z96.642 Presence of left artificial hip joint; Z87.891 Personal history of nicotine dependence; Z79.82 Long term (current) use of aspirin; Z79.899 Other long term (current) drug therapy; I25.2 Old myocardial infarction; M48.00 Spinal stenosis, site unspecified
CPT/HCPCS: 20605; 73080; 80048; 80053; 85025; 85027; 85652; 86140; 86803; 87015; 87070; 87205; 89051; 89060; 99285

== ENCOUNTER → 2024-05-25 08:47 | Outpatient (REF) | payer MEDICARE, BC, SELFPAY | LOC: HWRAD 08:47 | PROVIDERS: ATTENDING PHYSICIAN Family Medicine Adult Medicine; FAMILY PHYSICIAN Internal Medicine | DX: M81.0 Age-related osteoporosis without current pathological fracture (principal) | CPT/HCPCS: 77080 ==